=== PATIENT | male | born 2005 | race Asian ===

== ENCOUNTER 2025-03-16 00:22 | Emergency (ER) | payer SELFPAY ==
[2025-03-16 00:23] VITALS: BP 163/88; PULSE 88; RESP 20; TEMP 36.1; O2SAT 99; BMI 23.0
--- NOTE | 2025-03-16 00:35 | EDS_ITS ---
HPI History of Present Illness Chief Complaint: ETOH Intox Informant: patient and police/retail marketing executive Narrative Narrative: Patient is a 19-year-old male brought in by police secondary to altered mental status/intoxication. Reportedly he was found wandering downtown and appeared intoxicated. He could not provide the police with any information and therefore he was brought to the ER for evaluation. Upon arrival he admits to alcohol and marijuana use. He denies any pain or trauma PFSH PFS Medical History unable to obtain Home Medications Medication Instructions Recorded Last Taken Type Unobtainable 03/16/25 Unknown History Allergy/AdvReac Type Severity Reaction Status Date / Time Unable to Assess Allergy Verified 03/16/25 00:26 Family History unable to obtain Surgical History unable to obtain Social History Smoking Status: Unknown if ever smoked ROS ROS ED Constitutional Constitutional ED: Denies fever(s) Eyes Eyes: Denies change in vision ENT ENT ED: Denies sore throat Cardiovascular Cardiovascular: Denies chest pain Respiratory/Chest Respiratory/Chest: Denies cough or dyspnea Gastrointestinal Gastrointestinal: Denies abdominal pain or vomiting Musculoskeletal Musculoskeletal: Denies back pain or myalgias Neurologic Neurologic: Denies headache(s) Psychiatric Psychiatric: Denies suicidal ideation or suicidal thoughts EXAM Physical Exam Const Vital Signs: 03/16/25 00:23 03/16/25 05:29 Temperature 97 F L 98.2 F Temperature Source Temporal Pulse Rate 88 95 Respiratory Rate 20 H 18 Blood Pressure 163/88 H 104/74 Blood Pressure Mean 113 84 Pulse Ox 99 100 Positive well nourished and well developed General Appearance ED: well developed; Negative for pallor HEENT Reports moist mucous membranes HEENT Narrative: Normocephalic atraumatic No signs of depressed or basilar skull fracture No tongue or lip swelling no oral lesions no airway edema or compromise No tongue or cheek biting to suggest seizure activity Eyes EOMs intact bilaterally Eyes Narrative: Pupils are dilated and sluggish respond to light consistent with alcohol and THC use There is mild scleral injection consistent with drug use as well Neck supple Neck Narrative: No bony deformity or step-off of the cervical spine No nuchal rigidity or meningeal signs Patient is moving his neck in all directions without difficulty or pain Chest Wall palpation of chest normal Resp normal respiratory effort and clear to auscultation bilaterally Cardio regular rate and regular rhythm GI normal to inspection, nondistended, normoactive bowel sounds, non-tender, non- distended and no masses Auscultation: normoactive bowel sounds Palpation: soft Back/Spine Back/Spine Narrative: No bony deformity or step-off of the thoracic or lumbar spine No obvious midline tenderness to palpation Extremity normal to inspection Extremity Narrative: No signs of bony injury such as bony deformity or joint effusion Pelvis is stable there is no shortening or external rotation of either lower extremity Patient is able to move all extremities without difficulty or pain Neuro CN's II-XII intact bilaterally Neuro Narrative: Patient is obtunded with GCS of 14 He will awaken to voice and then quickly fall back asleep However there are no obvious focal neurologic findings and patient is protecting his airway and answering questions Sensorium / Orientation: alert Psych Psych Narrative: Patient is obtunded consistent with history of alcohol marijuana use Skin no rashes or lesions noted and no wounds General Skin Exam: Negative for jaundice or pallor MDM MDM MDM Narrative Medical decision making narrative: Patient arrived to ER hypertensive but otherwise with stable vitals. It was reported he was found wandering and as he was not answering questions for the police was brought to the ER. Upon arrival in the ER he does not reveal any signs of head or extremity trauma and he is protecting his airway. He does admit to alcohol and marijuana use which would correlate with his altered mental status and dilated and sluggish to respond pupils. An alcohol level was checked and is elevated at 142 which correlates with his history of drinking. At this time as his vitals are stable and he does not have respiratory distress and his history and exam correlate with his reported alcohol and drug use I do not feel the need for workup. The patient was watched in the ER for multiple hours his vital signs improved and he awoke and was coherent. Therefore with spontaneous resolution of symptoms and stable vitals as well as return to baseline/normal mental status there is no need for intervention and he is otherwise safe for discharge. History & Record Review Discussion w/independent historian: Patient Lab Data Labs: Laboratory Results - last 24 hr 03/16/25 00:28 Ethyl Alcohol 142.0 H Discharge Plan Triage Chief Complaint: ETOH Intox ED Provider: Davidson Mcfadden Dx/Rx/DC Orders Clinical Impression: Alcohol intoxication, Marijuana use Prescriptions: No Action Unobtainable Primary Care Provider: Care Physician,No Primary Referrals: NOT,DEFINED [Non-Staff, None] Print Language: Luxembourgish Disposition Disposition: Home, Self Care Discharge Date/Time: 03/16/25 04:40
[2025-03-16] MEDS: 0.9% Normal Saline (1000mL) 1,000 ML 999 ML IV (00:39)
[2025-03-16] MEDS: Pantoprazole Sodium 40 MG in 0.9% Normal Saline (100mL MB+) 100 ML 300 MG IV (00:49)
[2025-03-16 05:06] LABS: Alcohol, Blood (Medical)-Serum 142.0 mg/dL (<=10.0)
[2025-03-16 05:29] VITALS: BP 104/74; PULSE 95; RESP 18; TEMP 36.8; O2SAT 100
--- NOTE | 2025-03-16 05:30 | ED.RN ---
See downtime charting
== END 2025-03-16 04:40 | disposition home or self-care (01) ==
PROVIDERS: Emergency Provider Emergency Medicine; Visit Provider Emergency Medicine
DX: F10.129 Alcohol abuse with intoxication, unspecified (principal); F12.90 Cannabis use, unspecified, uncomplicated; Y90.6 Blood alcohol level of 120-199 mg/100 ml
CPT/HCPCS: 82077; 96361; 96365; 96375; 99284; J2405